=== PATIENT | male | born 1945 | race Caucasian/White ===

== ENCOUNTER 2020-09-18 16:49 | Emergency (ER) | payer MEDICARE ==
[~2020-09-18] VITALS: Ht 167.6 cm; Wt 81.6 kg
--- OUTSIDE RECORDS SUMMARY | 2020-09-18 16:52 | XMS ---
PreManage Notification: ANABEL ZHANG [employer] Events No recent Security Events currently on file CRITERIA MET - ED - Positive COVID-19 Lab Result - [facility] PHONE: [phone] RIVERA ORTEZ Nurse Practitioner Current PHONE: [phone] Farshad has no Care Guidelines for this patient. Rex VISIT COUNT (12 MO.) Abril Jefferson TOTAL 1 NOTE: Visits indicate total known visits. ED/UCC VISIT TRACKING (12 MO.) 09/18/2020 16:51 GABBIE Luis OR TYPE: Emergency COMPLAINT: - SOB INPATIENT VISIT TRACKING (12 MO.) No inpatient visits to display in this time frame [email or web address]
[2020-09-18] MEDS ORDERED: BENZONATATE100 MG PO (17:21)
[2020-09-18] MEDS ORDERED: LISINOPRIL20 MG PO (17:22)
[2020-09-18] MEDS ORDERED: ATORVASTATIN CA40 MG PO (17:22)
[2020-09-18] MEDS ORDERED: PREDNISONE20 MG PO (18:52)
== END 2020-09-18 19:21 | disposition home or self-care (01) ==
LOC: ED 16:49
DX: U07.1 COVID-19 (principal); J12.82 Pneumonia due to coronavirus disease 2019; I10 Essential (primary) hypertension; Z87.891 Personal history of nicotine dependence; Z88.6 Allergy status to analgesic agent; Z79.899 Other long term (current) drug therapy
CPT/HCPCS: 71045; 80053; 83880; 84484; 85025; 99285-25; J7512

== ENCOUNTER 2021-12-07 12:06 | Emergency (ER) | payer MEDICARE ==
[~2021-12-07] VITALS: Ht 167.6 cm; Wt 81.7 kg
[~2021-12-07 12:06] MED LIST: ATORVASTATIN CA40 MG PO; BENZONATATE100 MG PO; LISINOPRIL20 MG PO; PREDNISONE20 MG PO
== END 2021-12-07 15:00 | disposition home or self-care (01) ==
LOC: ED 12:06
DX: E86.0 Dehydration (principal); T50.B95A Adverse effect of other viral vaccines, initial encounter; I10 Essential (primary) hypertension; Z87.891 Personal history of nicotine dependence; Z88.6 Allergy status to analgesic agent; Z79.52 Long term (current) use of systemic steroids; Z79.899 Other long term (current) drug therapy
CPT/HCPCS: 36415; 80048; 85025; 99284; A9270; J7030

== ENCOUNTER 2023-09-07 05:55 | Day surgery (SDC) | payer MEDICARE ==
[2023-08-31 11:40] VITALS: BP 142/85
[~2023-09-07] VITALS: Ht 167.6 cm; Wt 90.9 kg
[~2023-09-07 05:55] MED LIST changes: +AMOX TR-K CLV1 EAC1 PO
[2023-09-07 06:10] VITALS: BP 126/72
--- NOTE | 2023-09-07 07:29 | NUR ---
ROUNDS. PT HEADED TO SURGERY SO MINIMAL INTERACTION. PROVIDED PRAYER.
--- NOTE | 2023-09-07 08:18 | NUR ---
09/07/23 0818 Bety Ashton 0806- PT PRESENTS TO PACU, LEFT LATERAL POSITION, NON REACTIVE TO STIMULUS AT THIS TIME. LR INFUSING TO RFA IV, O2 AT 6L PER MASK. ALL MONITORS IN PLACE, ABD SOFT AND NON DISTENDED. WILL CONTINUE TO MONITOR.
[2023-09-07 08:36] VITALS: BP 120/72
--- NOTE | 2023-09-08 09:21 | OR ---
[facility] [address], [place] [address] Signed DATE OF OPERATION: 09/07/2023 SURGEON: Ashley Sweeney MD PREOPERATIVE DIAGNOSES: 1. Recent episode of diverticulitis. 2. Father with colonic polyps at age 84. 3. Personal history of colonic polyps. 4. Multiple diffuse AV malformations. POSTOPERATIVE DIAGNOSES: 1. Moderate left-sided diverticulosis. 2. Multiple diffuse AV malformations. PROCEDURE: Colonoscopy without biopsy. ESTIMATED BLOOD LOSS: None. INDICATIONS: Reinaldo is an 78-year-old gentleman, who maintains himself an excellent physical shape. He continues to walk 3 to 4 miles a day. He fully expects to live in his 90s. Although he thinks he may have had COVID earlier this year which really took the wind out of his sails. He went to the emergency room in January 2023. He had sigmoid diverticulitis. It responded very nicely to 10 days of the Augmentin. The ER doctor and his primary care provider asked that he come see me for a followup colonoscopy. We know his father had colonic polyps removed at age 84. His father later of old age. Currently, Anabel has no lower GI complaints. His had been with him in the office. We know he had a colonoscopy in 2003 at the age of 58 [address] Maya for constipation. He had a diminutive hyperplastic polyp removed just above the anal canal. I saw him in 2009 at the age of 64. He had diffuse AV malformations throughout the colon along with his diverticulosis. He cannot recall any colonoscopy after that time. Again, he was in the emergency room in January of 2023 with diverticulitis. It has responded well to the Augmentin. We know that he has some level of pulmonary fibrosis at this point, probably from his COVID. 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 He is still walking 3 to 4 miles a day to help stay in shape. He did follow along with his airplane pilot. He said he likes a little bit of alcohol each week. He also has a very full round face with a heavy neck, chest and abdomen. Consequently, we did ask for monitored anesthesia care. In the office, I gave him a pamphlet on colonoscopy. We had Electronically Signed By: ASHLEY SWEENEY MD 09/08/23 0921 PATIENT NAME: ANABEL ZHANG REINALDO OPERATIVE REPORT DATE OF : 41 REPORT #: [id number] PHYSICIAN: ASHLEY SWEENEY MD PCP: OTHER PCP REPORT IS CONFIDENTIAL AND NOT TO BE RELEASED WITHOUT AUTHORIZATION [facility] [address] [place] [id number] Signed reviewed the nature of the test. There is risk including, but not limited to gas bloating, crampy abdominal pain, bleeding, perforation requiring surgery, and missed diagnosis. We also reviewed the need for the moderate anesthesia care. He had expressed understanding and wished to proceed. DESCRIPTION OF PROCEDURE: Anabel was taken into our endoscopy suite and placed in the left lateral decubitus position. He was given monitored anesthesia care, propofol infusion per our nurse fermenter champagne. A digital rectal exam was performed. He has some small external hemorrhoids. He had good sphincter tone. There were no masses. I can feel the bottom of his prostate that is a little indurated. The adult colonoscope was introduced and advanced under direct visualization of the camera. It took a little abdominal compression in order to get the scope down in the cecum itself. Overall, his prep was good. He had a few areas of liquid particulate stool matter. Most of that was suctioned out. The scope was then slowly withdrawn. We could easily see his ileocecal valve. We found the diverticula in the left and sigmoid colon. They were moderate in size moderate in number and scattered about and again he has multiple diffuse AV malformations throughout the colon and rectum. Once in the rectum, the scope was retroflexed and really no pathology above the anal canal. After this, the gas was suctioned out and the colonoscope removed. Anabel tolerated the procedure quite well. RECOMMENDATIONS: Anabel could follow up in 5 years for repeat colonoscopy so long as his health holds up. Mainly due to his father's history of colonic polyps. Ashley Sweeney MD ALB/MODL /[id number] cc: Ashley Sweeney MD Electronically Signed By: ASHLEY SWEENEY MD 09/08/23 0921 PATIENT NAME: ANABEL ZHANG REINALDO OPERATIVE REPORT DATE OF : 41 REPORT #: [id number] PHYSICIAN: ASHLEY SWEENEY MD PCP: OTHER PCP REPORT IS CONFIDENTIAL AND NOT TO BE RELEASED WITHOUT AUTHORIZATION [address] [address] Signed Copies: ASHLEY SWEENEY MD ~ Electronically Signed By: ASHLEY SWEENEY MD 09/08/23 0921 PATIENT NAME: ANABEL ZHANGN OPERATIVE REPORT DATE OF : 41 REPORT #: [id number] PHYSICIAN: ASHLEY SWEENEY MD PCP: OTHER PCP REPORT IS CONFIDENTIAL AND NOT TO BE RELEASED WITHOUT AUTHORIZATION
== END 2023-09-07 08:48 | disposition home or self-care (01) ==
LOC: DS 05:55
PROVIDERS: ATTEND Colon & Rectal Surgery
PROC: 0DJD8ZZ Inspection of Lower Intestinal Tract, Via Natural or Artificial Opening Endoscopic (ICD-10-PCS; principal; 2023-09-07 07:30)
DX: Z12.11 Encounter for screening for malignant neoplasm of colon (principal); K64.8 Other hemorrhoids; K57.30 Diverticulosis of large intestine without perforation or abscess without bleeding; K55.20 Angiodysplasia of colon without hemorrhage; Z83.719 Family history of colon polyps, unspecified; I12.9 Hypertensive chronic kidney disease with stage 1 through stage 4 chronic kidney disease, or unspecified chronic kidney disease; N18.32 Chronic kidney disease, stage 3b; E78.5 Hyperlipidemia, unspecified; J45.20 Mild intermittent asthma, uncomplicated; E66.9 Obesity, unspecified; Z68.33 Body mass index [BMI] 33.0-33.9, adult; Z86.16 Personal history of COVID-19; Z79.82 Long term (current) use of aspirin; Z79.899 Other long term (current) drug therapy
CPT/HCPCS: J2001; J2704; J7121